=== PATIENT | male | born 1960 | race Caucasian/White ===

== ENCOUNTER 2021-05-27 12:29 | Outpatient (CLI) | payer OTHER ==
--- NOTE | 2021-05-27 13:21 | XRAY Report ---
PROCEDURE: Knee 4 View RT INDICATIONS: KNEE PAIN TECHNIQUE: 4 views of the right knee(s) were acquired. COMPARISON: None. FINDINGS: BONES/JOINT: No acute, displaced fracture or dislocation. Minimal medial compartment joint space narr owing. No substantial suprapatellar joint effusion. SOFT TISSUES: Prepatellar edema. IMPRESSION: 1.No acute osseous abnormality. Reviewed by: Sherif Jerry MD on 05/27/2021 1:20 PM PDT Approved by: Sherif Jerry MD on 05/27/2021 1:20 PM PDT Station ID: [id number]
== END 2021-05-27 12:30 | disposition home or self-care (01) ==
LOC: DI 12:29
PROVIDERS: ATTEND Internal Medicine
DX: M25.561 Pain in right knee (principal)

== ENCOUNTER 2023-09-04 08:50 | Emergency (ER) | payer OTHER ==
--- NOTE | 2023-09-04 09:38 | XRAY Report ---
PROCEDURE: Chest 2V INDICATIONS: cough TECHNIQUE: 2 views of the chest were acquired. COMPARISON: None. FINDINGS: Surgical changes and devices: None. Lungs and pleura: No pleural effusions or pneumothorax. Lungs are clear. Mediastinum: Mediastinal contours appear normal. Heart size is normal. Bones and chest wall: No suspicious bony lesions. Overlying soft tissues appear unremarkable. IMPRESSION: No acute cardiopulmonary process. Reviewed by: Lyudmial Ruff MD on 09/04/2023 9:37 AM [facility] Approved by: Lyudmila Ruff MD on 09/04/2023 9:37 AM [facility] Station ID: [id number]
[2023-09-04 10:18] LABS: CORONAVIRUS 229E-RESP PCR NOT DETECTED; CORONAVIRUS HKU1-RESP PCR NOT DETECTED; CORONAVIRUS NL63-RESP PCR NOT DETECTED; CORONAVIRUS OC43-RESP PCR NOT DETECTED; HUMAN METAPNEUMOVIRUS NOT DETECTED; SARS-CoV-2 -RESP PCR PANEL NOT DETECTED
[2023-09-04 10:19] LABS: B. PARAPERTUSSIS- RESP PCR PAN NOT DETECTED; B. PERTUSSIS- RESP PCR PANEL NOT DETECTED; C. PNEUMONIAE- RESP PCR PANEL NOT DETECTED; INFLUENZA A- RESP PCR PANEL NOT DETECTED; INFLUENZA B - RESP PCR PANEL NOT DETECTED; M. PNEUMONIAE- RESP PCR PANEL NOT DETECTED; PARAINFLUENZA VIRUS 1 NOT DETECTED; PARAINFLUENZA VIRUS 2 NOT DETECTED; PARAINFLUENZA VIRUS 3 NOT DETECTED; PARAINFLUENZA VIRUS 4 NOT DETECTED; RHINOVIRUS/ENTEROVIRUS NOT DETECTED; RSV- RESP PCR PANEL NOT DETECTED
--- NOTE | 2023-09-04 12:29 | ED Physician Documentation ---
PD ILIANA DRAKE - Stated complaint Stated Complaint: SOA,SORE THROAT - Chief complaint Chief Complaint: Resp - History obtained from History obtained from: Patient, Family - Additional information Additional information: The patient comes to the emergency department chief complaint of productive cough for the last 2 months. He states it started in June with an upper respiratory infection and has been going on in a waxing and waning pattern since. He states that about 2 weeks ago, he noticed a big uptick in his sputum production and cough and states that he has not been able to sleep at night b ecause he is coughing so much. He states he has a history of bronchitis previously and that it generally takes a bit longer of a course of antibiotics to get him better than is typical. He states that when the symptoms started a couple weeks ago to worsen, he felt that it was similar to his previous episodes of bronchitis and was seen in the walk-in clinic. He was prescribed cefdinir and Zithromax at typical course length, as well as Medrol Dosepak and Tessalon. The patient also has an albuterol inhaler at home. He states that he took all of those and felt quite a bit better but after the antibiotic course was done, the patient began to notice worsening of the symptoms again. He denies any measured fevers at home. He has not been diagnosed with asthma though he has been on inhaler for quite some time. He is not a smoker. The patient states he is mainly concerned that the antibiotic course was not quite long enough for him and would like to extend if possible. He is also scheduled for jury duty tomorrow and would like to be excuse since he is continuing to have respiratory illness. No other complaints at this time. PD PAST MEDICAL HISTORY - Past Medical History Past Medical History: Yes Cardiovascular: Hypertension Respiratory: Asthma Neuro: Other Endocrine/Autoimmune: HyPOthyroidism GI: None : Benign prostate hypertrophy Psych: Post traumatic stress disorder Musculoskeletal: None Derm: None - Past Surgical History Past Surgical History: Yes General: Appendectomy - Present Medications Home Medications: Ambulatory Orders Medication Instructions Recorded Confirmed Aspirin [Aspir 81] 81 mg DAILY 07/26/15 07/26/15 Levothyroxine [Synthroid] 75 mcg DAILY 07/26/15 07/26/15 atenoloL [Atenolol] 25 mg DAILY 07/26/15 07/26/15 guaiFENesin/CODEINE [Robitussin AC] 5 - 10 ml PO Q6H PRN #120 ml 07/26/15 Azithromycin [Zithromax] 0 mg PO DAILY #6 tablet 09/04/23 Benzonatate [Tessalon] 200 mg PO TID PRN #20 cap 09/04/23 predniSONE [Deltasone] 10 mg PO [id number] #42 tab 09/04/23 - Allergies Allergies/Adverse Reactions: Allergies Allergy/AdvReac Type Severity Reaction Status Date / Time No Known Drug Allergies Allergy Verified 09/04/23 09:13 - Social History Does the pt smoke?: No Smoking Status: Never smoker Does the pt drink ETOH?: No Does the pt have substance abuse?: No - Immunizations Immunizations are current?: Yes - POLST Patient has POLST: No PD ED PE NORMAL - Vitals Vital signs reviewed: Yes - General General: Alert and oriented X 3, No acute distress, Well developed/nourished - HEENT HEENT: Atraumatic, PERRL, EOMI, Moist mucous membranes - Neck Neck: Supple, no meningeal sign - Cardiac Cardiac: RRR, No murmur - Respiratory Respiratory: No respiratory distress, Clear bilaterally - Abdomen Abdomen: Soft, Non tender, Non distended - Derm Derm: Warm and dry - Extremities Extremities: No deformity - Neuro Neuro: Alert and oriented X 3 - Psych Psych: Normal mood, Normal affect Results - Vitals Vitals: Vital Signs - 24 hr 09/04/23 09:14 Temperature 36.2 C L Heart Rate 88 Respiratory 18 Rate Blood Pressure 127/86 H O2 Saturation 98 Oxygen O2 Source Room air - Labs Labs: Laboratory Tests 09/04/23 09:20 Nasal Adenovirus (PCR) NOT DETECTED Nasal B. parapertussis DNA (PCR) NOT DETECTED Nasal Coronavir 229E PCR NOT DETECTED Nasal Coronavir HKU1 PCR NOT DETECTED Nasal Coronavir NL63 PCR NOT DETECTED Nasal Coronavir OC43 PCR NOT DETECTED Nasal Enterovir/Rhinovir PCR NOT DETECTED Nasal Influenza B PCR NOT DETECTED Nasal Influenza A PCR NOT DETECTED Nasal Parainfluen 1 PCR NOT DETECTED Nasal Parainfluen 2 PCR NOT DETECTED Nasal Parainfluen 3 PCR NOT DETECTED Nasal Parainfluen 4 PCR NOT DETECTED Nasal RSV (PCR) NOT DETECTED Nasal B.pertussis DNA PCR NOT DETECTED Nasal C.pneumoniae (PCR) NOT DETECTED Anders Human Metapneumo PCR NOT DETECTED Nasal M.pneumoniae (PCR) NOT DETECTED Nasal SARS-CoV-2 (PCR) NOT DETECTED - Rads (name of study) Chest x-ray Relevant Findings:: Final report received, See rad report (Negative) PD Medical Decision Making - ED course Complexity details: reviewed results, re-evaluated patient, considered differential, d/w patient ED course: The patient was worked up a chest x-ray and respiratory PCR panel, both of which were negative. I did feel that given that his symptoms improved with antibiotics and then began to worsen again, the most likely needed a longer course. I refilled his Zithromax, as well as steroid and cough medicine. We have discussed the need for follow-up with his primary doctor if this does not improve his symptoms. Departure - Departure Disposition: 01 Home, Self Care Clinical Impression: Bronchitis Condition: Stable Instructions: ED Upper Resp Infec Abx Tx Prescriptions: predniSONE [Deltasone] 10 mg PO [id number] #42 tab Benzonatate [Tessalon] 200 mg PO TID PRN #20 cap PRN Reason: Cough Azithromycin [Zithromax] 0 mg PO DAILY #6 tablet Comments: Your chest x-ray looks good. You most likely have some residual bronchitis left over from your recent illness. We will put you back on the Zithromax and also, the steroid taper and Tessalon. The prescriptions for these have been electronically transmitted to the [facility] pharmacy in [place]. Forms: PCP List, Activity restrictions
[2023-09-04 12:38] VITALS: BP 139/92; O2SAT 100
== END 2023-09-04 13:00 | disposition home or self-care (01) ==
LOC: ED 08:50
DX: J40 Bronchitis, not specified as acute or chronic (principal); I10 Essential (primary) hypertension; Z11.52 Encounter for screening for COVID-19
CPT/HCPCS: 87633; 99284